=== PATIENT | female | born 1970 | race Caucasian/White ===

== ENCOUNTER → 2020-02-19 | Outpatient (CLI) | payer OTHER | LOC: RAD 10:18 | DX: M25.551 Pain in right hip (principal); M25.552 Pain in left hip | CPT/HCPCS: 73522 ==

== ENCOUNTER → 2020-04-27 | Outpatient (CLI) | payer OTHER | LOC: MAMO 10:54 | DX: Z12.31 Encounter for screening mammogram for malignant neoplasm of breast (principal) | CPT/HCPCS: 77063; 77067 ==

== ENCOUNTER → 2020-08-10 | Outpatient (CLI) | payer OTHER | LOC: KOH-I 12:26 | DX: M54.2 Cervicalgia (principal) | CPT/HCPCS: 72040 ==

== ENCOUNTER → 2021-01-04 | Outpatient (CLI) | payer OTHER | LOC: KOH-I 12:45 | DX: M25.562 Pain in left knee (principal); R93.6 Abnormal findings on diagnostic imaging of limbs | CPT/HCPCS: 73562 ==

== ENCOUNTER → 2021-02-26 | Outpatient (CLI) | payer OTHER | LOC: KOH-I 02-19 13:00 | DX: M17.12 Unilateral primary osteoarthritis, left knee (principal); S83.502A Sprain of unspecified cruciate ligament of left knee, initial encounter; W19.XXXA Unspecified fall, initial encounter | CPT/HCPCS: 73721 ==

== ENCOUNTER 2021-05-15 22:54 | Emergency (ER) | payer OTHER ==
[2021-05-16] MEDS ORDERED: CEPHALEXIN500 M1 PO (03:24)
== END 2021-05-16 03:38 | disposition home or self-care (01) ==
LOC: ER1 22:54
DX: S91.341A Puncture wound with foreign body, right foot, initial encounter (principal); E11.40 Type 2 diabetes mellitus with diabetic neuropathy, unspecified; I10 Essential (primary) hypertension; Z23 Encounter for immunization; W26.8XXA Contact with other sharp object(s), not elsewhere classified, initial encounter
CPT/HCPCS: 10120; 73630; 90471; 90715; 99283

== ENCOUNTER → 2021-10-09 | Outpatient (CLI) | payer OTHER ==
[~2021-10-09] MED LIST: CEPHALEXIN500 M1 PO
== END ==
LOC: LAB 12:24
DX: E03.9 Hypothyroidism, unspecified (principal)
CPT/HCPCS: 84443